=== PATIENT | female | born 1975 | race Caucasian/White ===

== ENCOUNTER 2024-01-31 19:00 | Emergency (ER) | payer OTHER ==
--- NOTE | 2024-01-31 21:46 | ED ---
General Adult HPI - General Chief complaint: Psychiatric Symptoms Stated complaint: Petition Time Seen by Provider: 01/31/24 19:01 Source: patient, family, RN notes reviewed, old records reviewed Mode of arrival: EMS Limitations: no limitations - History of Present Illness Initial comments: Patient is a 48-year-old female who is petitioned for suicidal ideations. Patient denies any of this. Denies suicidal ideations, homicidal ideations, hallucinations. Has no other acute complaints at this time. Does not want to be here. Presents for further evaluation.Petition states that she wants to kill herself. Took multiple Xanax at home a while earlier. However currently is alert, oriented, acting normally. Denies taking any other medications. Only Xanax are documented as being taken by the petitioner, her son John. - Related Data Home Medications Medication Instructions Recorded Confirmed Baclofen [Lioresal] 20 mg PO TID PRN 01/31/24 02/01/24 DULoxetine HCL [Cymbalta] 30 mg PO BID 01/31/24 01/31/24 Irbesartan 300 mg PO HS 01/31/24 01/31/24 Meloxicam [Mobic] 7.5 mg PO DAILY 01/31/24 01/31/24 amLODIPine [Norvasc] 5 mg PO DAILY 01/31/24 01/31/24 Naltrexone HCl [Revia] 25 mg PO DAILY 02/01/24 02/01/24 SUMAtriptan succinate [Imitrex] 100 mg PO BID PRN 02/01/24 02/01/24 hydrOXYzine HCL [Atarax] 6.25 mg PO HS 02/01/24 02/01/24 metFORMIN HCL ER [Glucophage XR] 1,500 mg PO DAILY 02/01/24 02/01/24 Allergies Allergy/AdvReac Type Severity Reaction Status Date / Time Sulfa (Sulfonamide Allergy Rash/Hives Verified 01/31/24 20:18 Antibiotics) sulfamethoxazole Allergy Rash/Hives Verified 02/01/24 09:28 [From Bactrim] trimethoprim [From Bactrim] Allergy Rash/Hives Verified 02/01/24 09:28 Review of Systems ROS Statement: Those systems with pertinent positive or pertinent negative responses have been documented in the HPI. Review of Systems: CONST: Denies fever EYES: Denies blurry vision ENT: Denies nasal congestion C/V: Denies Chest pain RESP: Denies shortness of breath GI: Denies abdominal pain : Denies dysuria SKIN: Denies rash. MSK: Denies joint pain. NEURO: Denies headache ROS Other: All systems not noted in ROS Statement are negative. Past Medical History Past Medical History: Asthma, Hypertension History of Any Multi-Drug Resistant Organisms: None Reported Past Surgical History: Section Past Psychological History: No Psychological Hx Reported, Anxiety, Depression, PTSD Smoking Status: Never smoker Past Alcohol Use History: None Reported Past Drug Use History: None Reported General Exam - General Exam Comments Initial Comments: General: Appears in no acute distress. HEAD: Normal with no signs of head trauma. EYES: PERRLA, EOMI, conjunctiva normal, no discharge. ENT: Hearing grossly intact, normal oropharynx. RESPIRATORY: Clear breath sounds bilaterally. No wheezes, rales, or rhonchi. C/V: Regular rate and rhythm. S1 and S2 auscultated, no edema, peripheral pulses 2+ and intact throughout ABD: Abd is soft, nontender, nondistended EXT: Normal range of motion, no obvious deformity SKIN: No rashes or lesions observed on exposed skin. NEURO: Alert and oriented x 4. No obvious focal deficits. Limitations: no limitations Course Vital Signs 01/31/24 02/01/24 02/01/24 19:03 10:01 20:21 Temperature 99.7 F H 98.7 F Pulse Rate 137 H 91 98 Respiratory 18 18 18 Rate Blood Pressure 111/74 107/81 126/85 O2 Sat by Pulse 96 96 99 Oximetry 02/01/24 02/02/24 02/02/24 21:40 07:54 17:29 Temperature 98.0 F 98.4 F Pulse Rate 103 H 96 115 H Respiratory 18 18 20 Rate Blood Pressure 155/99 122/81 112/63 O2 Sat by Pulse 96 98 98 Oximetry Medical Decision Making - Medical Decision Making Was pt. sent in by a medical professional or institution ([facility], [facility], urgent care, hospital, or assisted...) When possible be specific @ -No Did you speak to anyone other than the patient for history (EMS, parent, family, police, friend...)? What history was obtained from this source @ -No Did you review nursing and triage notes (agree or disagree)? Why? @ -I reviewed and agree with nursing and triage notes Were old charts reviewed (outside hosp., previous admission, EMS record, old EKG, old radiological studies, urgent care reports/EKG's, assisted records)? Report findings @ -No old charts were reviewed Differential Diagnosis (chest pain, altered mental status, abdominal pain women, abdominal pain men, vaginal bleeding, weakness, fever, dyspnea, syncope, headache, dizziness, GI bleed, back pain, seizure, CVA, palpatations, mental health, musculoskeletal)? @ -Differential Mental Health Depression, anxiety, bipolar, psychosis, schizophrenia, borderline personality, situational depression, adjustment disorder, behavioral disorder, brain tumor, malingering, substance abuse, encephalopathy, medication reaction, dementia, hypothyroidism, degenerative neurologic disorder, lupus.... This is not meant to be all-inclusive list EKG interpreted by me (3pts min.). @ -None done X-rays interpreted by me (1pt min.). @ -None done CT interpreted by me (1pt min.). @ -None done U/S interpreted by me (1pt. min.). @ -None done What testing was considered but not performed or refused? (CT, X-rays, U/S, labs)? Why? @ -None What meds were considered but not given or refused? Why? @ -None Did you discuss the management of the patient with other professionals (professionals i.e. , PA, [facility], lab, RT, psych nurse, delinquency prevention social worker, jewelry racker, teacher, [place] customs and border officer, special education case manager)? Give summary @ -No Was smoking cessation discussed for >3mins.? @ -No Was critical care preformed (if so, how long)? @ -No Were there social determinants of health that impacted care today? How? (Homelessness, low income, unemployed, alcoholism, drug addiction, transportation, low edu. Level, literacy, decrease access to med. care, [facility]ci, rehab)? @ -No Was there de-escalation of care discussed even if they declined (Discuss DNR or withdrawal of care, Hospice)? DNR status @ -No What co-morbidities impacted this encounter? (DM, HTN, Smoking, COPD, CAD, Cancer, CVA, ARF, Chemo, Hep., AIDS, mental health diagnosis, sleep apnea, morbid obesity)? @ -None Was patient admitted / discharged? Hospital course, mention meds given and route, prescriptions, significant lab abnormalities, going to OR and other pertinent info. @ -Patient presents for mental health evaluation. Sitter ordered. Suicide precautions ordered. BAT is 0. UDS is pending. Patient took Xanax earlier but currently is acting normally. Vitals are within acceptable limits. Patient is medically cleared at this time. Pending psychiatric evaluation. EPS notified of the consult. Patient did meet inpatient psychiatric care. Eventually transferred for inpatient psychiatric admission after my shift. Undiagnosed new problem with uncertain prognosis? @ -No Drug Therapy requiring intensive monitoring for toxicity (Heparin, Nitro, Insulin, Cardizem)? @ -No Were any procedures done? @ -No Diagnosis/symptom? @ -Suicidal ideation, impulsive Acute, or Chronic, or Acute on Chronic? @ -Acute Uncomplicated (without systemic symptoms) or Complicated (systemic symptoms)? @ -Complicated Side effects of treatment? @ -None Exacerbation, Progression, or Severe Exacerbation] @ -No Poses a threat to life or bodily function? @ -Yes - Lab Data Lab Results 01/31/24 01/31/24 02/01/24 Range/Units 19:11 19:11 18:20 Urine HCG, Qual Not Detected (Not Detectd) Urine Opiates Screen Not Detected (NotDetected) Ur Oxycodone Screen Not Detected (NotDetected) Urine Methadone Screen Not Detected (NotDetected) Ur Barbiturates Screen Not Detected (NotDetected) U Tricyclic Antidepress Detected H (NotDetected) Ur Phencyclidine Scrn Not Detected (NotDetected) Ur Amphetamines Screen Not Detected (NotDetected) U Methamphetamines Scrn Not Detected (NotDetected) U Benzodiazepines Scrn Detected H (NotDetected) Urine Cocaine Screen Not Detected (NotDetected) U Marijuana (THC) Screen Not Detected (NotDetected) SARS-CoV-2 (PCR) Not Detected (Not Detectd) Disposition Clinical Impression: Impulsive, Suicidal ideation Disposition: TRANSFER TO PSYCH HOSP/UNIT Condition: Stable Referrals: None,Stated [Primary Care Provider] - 1-2 days
[2024-02-01 09:07] LABS: Amphetamine Screen,Urine Not Detected (NotDetected); Barbiturate Screen,Urine Not Detected (NotDetected); Benzodiazepines Screen,Urine Detected (NotDetected); Cocaine Screen,Urine Not Detected (NotDetected); Methadone Screen, Urine Not Detected (NotDetected); Opiate Screen,Urine Not Detected (NotDetected); Oxycodone Screen, Urine Not Detected (NotDetected); Phencyclidine Screen,Urine Not Detected (NotDetected); Tricyclic Antidepressant,Urine Detected (NotDetected); Urn Cannabinoid Scrn Not Detected (NotDetected)
[2024-02-01] MEDS ORDERED: SUMAtriptan succinate 50 MG TAB PO PRN (09:53)
[2024-02-01] MEDS: BACLOFEN 10 MG TAB PO PRN (18:13)
[2024-02-01] MEDS: HYDROcodone/APAP 5-325MG 1 EACH TAB PO STA (20:24)
[2024-02-01] MEDS: hydrOXYzine HCL 25 MG TAB PO SCH (21:46)
[2024-02-01] MEDS: LOSARTAN 50 MG TAB PO SCH (21:46)
[2024-02-01] MEDS: DULoxetine HCL 30 MG CAPSULE.DR PO SCH (21:46)
[2024-02-02] MEDS: ACETAMINOPHEN TAB 325 MG TAB PO STA (01:14)
[2024-02-02] MEDS: IBUPROFEN 600 MG TAB PO STA (01:15)
[2024-02-02] MEDS: NALTREXONE HCL 50 MG TAB PO SCH (11:18)
[2024-02-02] MEDS: MELOXICAM 7.5 MG TAB PO SCH (11:26)
[2024-02-02] MEDS: metFORMIN 500 MG TAB PO SCH (11:26)
[2024-02-02] MEDS: amLODIPine 5 MG TAB PO SCH (11:27)
[2024-02-02] MEDS: KETOROLAC 15 MG/ML 1 ML VIAL IM STA (16:00)
[2024-02-02] MEDS: LORazepam 1 MG TAB PO STA (16:01)
[2024-02-02 17:30] VITALS: BP 112/63; PULSE 115; RESP 20; TEMP 98.4
== END 2024-02-02 17:35 ==
LOC: EC 19:00
CPT/HCPCS: 80306; 81025; 82075; 87635; 96372; 99285